=== PATIENT | male | born 1980 | race Caucasian/White ===

== ENCOUNTER 2021-06-06 16:25 | Emergency (ER) | payer OTHER ==
--- NOTE | 2021-06-06 20:39 | ED ---
General Adult HPI <Mae Rice - Last Filed: 06/06/21 20:41> <Jonathan Hahn - Last Filed: 06/06/21 23:23> - General Stated complaint: covid+, wants infusion Time Seen by Provider: 06/06/21 20:04 - History of Present Illness Initial comments: 40 year-old male patient presents to the emergency department requesting antibody infusion after testing positive for COVID. States he has been having symptoms for the last 9-10 days. Tested positive for COVID at [facility] on Sunday. He reports cough, shortness of breath, body aches. Decreased appetite. Denies having the vaccine. Denies history of smoking. Denies vomiting, diarrhea, or inability to eat. (Mae Rice) - Related Data Allergies Allergy/AdvReac Type Severity Reaction Status Date / Time No Known Allergies Allergy Verified 06/06/21 23:08 Review of Systems ROS Other: All systems not noted in ROS Statement are negative. <Mae Rice - Last Filed: 06/06/21 20:41> ROS Other: All systems not noted in ROS Statement are negative. <Jonathan Hahn - Last Filed: 06/06/21 23:23> ROS Statement: Those systems with pertinent positive or pertinent negative responses have been documented in the HPI. General Exam General appearance: alert, in no apparent distress ENT exam: Present: normal exam, normal oropharynx, mucous membranes moist Respiratory exam: Present: normal lung sounds bilaterally. Absent: respiratory distress, wheezes, rales, rhonchi, stridor Cardiovascular Exam: Present: regular rate, normal rhythm, normal heart sounds. Absent: systolic murmur, diastolic murmur, rubs, gallop, clicks GI/Abdominal exam: Present: soft, normal bowel sounds. Absent: distended, tenderness, guarding, rebound, rigid Neurological exam: Present: alert, oriented X3, CN II-XII intact Psychiatric exam: Present: normal affect, normal mood Skin exam: Present: warm, dry, intact, normal color. Absent: rash <Mae Rice - Last Filed: 06/06/21 20:41> General appearance: alert, in no apparent distress Head exam: Present: atraumatic, normocephalic, normal inspection Eye exam: Present: normal appearance, PERRL, EOMI. Absent: scleral icterus, conjunctival injection, periorbital swelling ENT exam: Present: normal exam, mucous membranes moist Neck exam: Present: normal inspection. Absent: tenderness, meningismus, lymphadenopathy Respiratory exam: Present: normal lung sounds bilaterally. Absent: respiratory distress, wheezes, rales, rhonchi, stridor Cardiovascular Exam: Present: regular rate, normal rhythm, normal heart sounds. Absent: systolic murmur, diastolic murmur, rubs, gallop, clicks GI/Abdominal exam: Present: soft, normal bowel sounds. Absent: distended, tenderness, guarding, rebound, rigid Neurological exam: Present: alert, oriented X3, CN II-XII intact Psychiatric exam: Present: normal affect, normal mood Skin exam: Present: warm, dry, intact, normal color. Absent: rash <Jonathan Hahn - Last Filed: 06/06/21 23:23> Course Vital Signs 06/06/21 06/06/21 20:02 22:38 Temperature 98 F Pulse Rate 105 H Respiratory 20 22 Rate Blood Pressure 204/102 O2 Sat by Pulse 95 Oximetry Medical Decision Making <Jonathan Hahn - Last Filed: 06/06/21 23:23> - Medical Decision Making Patient is a 40-year-old male that presents to the emergency room complaining of cold-like symptoms. He also tested positive for Covid and wants to get the monoclonal antibody in fusion. Patient does meet criteria for monoclonal antibody infusion. He is agreeable to discharge home after infusion. Vital signs are stable. Case discussed with Dr. Emery, patient discharge home. (Jonathan Hahn) Disposition <Mae Rice - Last Filed: 06/06/21 20:41> Is patient prescribed a controlled substance at d/c from ED?: No Time of Disposition: 23:22 <Jonathan Hahn - Last Filed: 06/06/21 23:23> Clinical Impression: COVID Disposition: HOME SELF-CARE Condition: Stable Instructions (If sedation given, give patient instructions): Coronavirus Disease 2019 (COVID-19) Additional Instructions: Please return to the Emergency Department if symptoms worsen or any other concerns. Referrals: Brett Nugent MD [Primary Care Provider] - 1-2 days
[2021-06-06] MEDS ORDERED: CASIRIVIMAB/IMDEVIMAB (EUA) 1,200 MG in SODIUM CHLORIDE 0.9% 100 ML IVPB ONE (21:15)
[2021-06-06] MEDS ORDERED: SODIUM CHLORIDE 0.9% 50 ML IVPB ONE (21:15)
[2021-06-06 23:47] VITALS: PULSE 107
[2021-06-07 00:26] VITALS: BP 165/94; RESP 18; TEMP 100.4
== END 2021-06-07 00:26 | disposition home or self-care (01) ==
LOC: EC 16:25
DX: U07.1 COVID-19 (principal)
CPT/HCPCS: 99283; 96365; Q0243